=== PATIENT | female | born 1945 | race Caucasian/White ===

== ENCOUNTER → 2018-01-03 | Outpatient (CLI) | payer MEDICARE, OTHER ==
--- NOTE | 2018-01-03 15:55 | XR ---
EXAMINATION TYPE: XR chest 2V DATE OF EXAM: 01/03/2018 COMPARISON: NONE HISTORY: Shortness of breath, Elevated d-dimer TECHNIQUE: Frontal and lateral views of the chest are obtained. FINDINGS: There is no focal air space opacity, pleural effusion, or pneumothorax seen. The cardiac silhouette size is within normal limits. Pectus deformity is suspected. Patient is rotated. The osse ous structures are intact. IMPRESSION: No acute cardiopulmonary process.
--- NOTE | 2018-01-03 16:46 | NM ---
EXAMINATION TYPE: NM pul vent and perfuse DATE OF EXAM: 01/03/2018 COMPARISON: Chest radiograph 01/03/2018 at 3:27 PM HISTORY: Elevated d-dimer and dyspnea TECHNIQUE: Utilizing inhalation of 38 mCi Tc 99m DTPA aerosol and intravenous injection of 5.06 mCi of Tc 99m MAA, ventilation and perfusion images are acquired post injection in multiple projections. FINDINGS: There is mild heterogeneity to the radiotracer distribution is noted in the lungs. There is no eviden ce of mismatched defects. IMPRESSION: Low probability for the diagnosis of pulmonary embolism.
== END | disposition home or self-care (01) ==
LOC: RADNMMAIN 15:19
PROVIDERS: ATTEND Nurse Practitioner Family
DX: R06.02 Shortness of breath (principal); R79.1 Abnormal coagulation profile
CPT/HCPCS: 71046; 78582; A9540; A9567

== ENCOUNTER 2018-02-01 21:19 | Emergency (ER) | payer MEDICARE, OTHER ==
[2018-02-01 21:42] VITALS: TEMP 97.3
--- NOTE | 2018-02-01 21:54 | ED ---
SOB HPI - General Chief Complaint: Shortness of Breath Stated Complaint: SOB Time Seen by Provider: 02/01/18 21:29 Source: EMS Mode of arrival: EMS Limitations: no limitations - History of Present Illness Initial Comments: This patient is a 72-year-old woman who presents by ambulance to be evaluated for shortness of breath. History comes from the patient and her . She believes that she developed shortness of breath when she eats certain foods that do not agree with her ostomy. She states that she had a muffin tonight with citrus fruit. She believes this contributed to her shortness of breath which came on around 8 PM. She states that she was feeling much couldn't catch her breath and called EMS. EMS transported patient here after placing her on oxygen and she states that the oxygen seemed to help the symptoms resolve. She states that she feels nearly back to her usual self. She states she has had multiple episodes like this, last on after eating some tomato-based food. 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 The patient is currently not taking blood thinners and has had no further DVT/PE. The patient did state that in relation to an episode of dyspnea that she had last month she was given a VQ scan that was read as negative. MD Complaint: shortness of breath Onset/Timin -: hour(s) Improves With: oxygen Worsens With: nothing Associated Symptoms: denies other symptoms Treatments Prior to Arrival: oxygen - Related Data Home Medications Medication Instructions Recorded Confirmed Atenolol 25 mg PO DAILY 02/01/18 02/01/18 Brimonidine Tartrate/Timolol 1 drop BOTH EYES DAILY 02/01/18 02/01/18 [Combigan 0.2%-0.5% Eye Drops] Cetirizine HCl [Zyrtec] 10 mg PO DAILY 02/01/18 02/01/18 Docusate [Colace] 100 mg PO DAILY 02/01/18 02/01/18 Glucosam/Camilo-Msm1/C/Joaquin/Bosw 1 tab PO DAILY 02/01/18 02/01/18 [Glucosamine-Chondroitin Tablet] Lisinopril [Zestril] 20 mg PO DAILY 02/01/18 02/01/18 [place]-3 Fatty Acids/Fish Oil [Fish 1 cap PO DAILY 02/01/18 02/01/18 Oil 1,000 mg Softgel] Polyethylene Glycol 3350 [Miralax] 17 gm PO DAILY 02/01/18 02/01/18 Simvastatin [Zocor] 10 mg PO DAILY 02/01/18 02/01/18 Travoprost [Travatan Z 0.004%] 1 drop BOTH EYES HS 02/01/18 02/01/18 hydrALAZINE HCL 50 mg PO DAILY 02/01/18 02/01/18 Previous Rx's Medication Instructions Recorded Albuterol Inhaler [Ventolin Hfa 1 - 2 puff INHALATION Q6HR PRN #1 02/02/18 Inhaler] inhaler predniSONE 20 mg PO BID #8 tab 02/02/18 Allergies Allergy/AdvReac Type Severity Reaction Status Date / Time Penicillins Allergy Rash/Hives Verified 02/01/18 21:40 latex AdvReac Rash/Hives Verified 02/01/18 21:40 Review of Systems ROS Statement: Those systems with pertinent positive or pertinent negative responses have been documented in the HPI. ROS Other: All systems not noted in ROS Statement are negative. Constitutional: Denies: fever, chills, weakness Respiratory: Reports: dyspnea. Denies: cough, wheezes, hemoptysis Cardiovascular: Denies: chest pain, palpitations, orthopnea, edema, syncope Gastrointestinal: Denies: abdominal pain, nausea, vomiting Genitourinary: Denies: dysuria, hematuria Musculoskeletal: Denies: back pain Skin: Denies: rash Neurological: Denies: headache Past Medical History Past Medical History: GERD/Reflux, Hypertension History of Any Multi-Drug Resistant Organisms: None Reported Past Surgical History: Cholecystectomy Additional Past Surgical History / Comment(s): ostomy Past Psychological History: No Psychological Hx Reported Smoking Status: Never smoker Past Alcohol Use History: None Reported Past Drug Use History: None Reported General Exam Limitations: no limitations General appearance: alert, in no apparent distress Head exam: Present: atraumatic, normocephalic Eye exam: Present: normal appearance. Absent: scleral icterus, conjunctival injection Neck exam: Present: normal inspection Respiratory exam: Present: wheezes. Absent: respiratory distress, rales, rhonchi, stridor Cardiovascular Exam: Present: regular rate, normal rhythm, normal heart sounds. Absent: systolic murmur, diastolic murmur, rubs, gallop GI/Abdominal exam: Present: soft, other (There is an ostomy present in the left upper quadrant which appears normal.). Absent: distended, tenderness, guarding , rebound, rigid, mass Extremities exam: Present: normal inspection, normal capillary refill. Absent: pedal edema, calf tenderness Back exam: Present: normal inspection. Absent: CVA tenderness (R), CVA tenderness (L) Neurological exam: Present: alert Skin exam: Present: warm, dry, intact, normal color. Absent: rash Course Vital Signs 02/01/18 02/01/18 02/01/18 21:35 22:22 22:25 Temperature 97.3 F L Pulse Rate 72 67 64 Respiratory 20 16 18 Rate Blood Pressure 166/98 129/82 O2 Sat by Pulse 94 L 96 Oximetry 02/01/18 02/01/18 02/02/18 22:34 23:00 00:00 Temperature Pulse Rate 64 64 60 Respiratory 16 20 14 Rate Blood Pressure 171/82 138/66 O2 Sat by Pulse 95 93 L Oximetry 02/02/18 02/02/18 02/02/18 01:00 01:22 01:24 Temperature Pulse Rate 61 Respiratory 17 Rate Blood Pressure 131/67 O2 Sat by Pulse 95 91 L 91 L Oximetry Medical Decision Making - Medical Decision Making Patient is 72-year-old woman who had an episode of dyspnea at home. On the exam she does have some wheezing. She is feeling better following albuterol here. She is feeling better and would like to go home, and at this point I discussed further treatment as well as follow-up and return parameters. - Lab Data Result diagrams: 02/01/18 21:55 02/01/18 21:55 Lab Results 02/01/18 02/01/18 02/01/18 Range/Units 21:55 21:55 21:55 WBC 5.7 (3.8-10.6) k/uL RBC 4.81 (3.80-5.40) m/uL Hgb 14.2 (11.4-16.0) gm/dL Hct 43.6 (34.0-46.0) % MCV 90.5 (80.0-100.0) fL MCH 29.5 (25.0-35.0) pg MCHC 32.5 (31.0-37.0) g/dL RDW 14.3 (11.5-15.5) % Plt Count 220 (150-450) k/uL Neutrophils % 77 % Lymphocytes % 14 % Monocytes % 4 % Eosinophils % 3 % Basophils % 1 % Neutrophils # 4.4 (1.3-7.7) k/uL Lymphocytes # 0.8 L (1.0-4.8) k/uL Monocytes # 0.2 (0-1.0) k/uL Eosinophils # 0.2 (0-0.7) k/uL Basophils # 0.1 (0-0.2) k/uL PT (9.0-12.0) sec INR (<1.2) APTT (22.0-30.0) sec D-Dimer (<0.60) mg/L FEU Sodium 137 (137-145) mmol/L Potassium 4.1 (3.5-5.1) mmol/L Chloride 102 (98-107) mmol/L Carbon Dioxide 26 (22-30) mmol/L Anion Gap 9 mmol/L BUN 32 H (7-17) mg/dL Creatinine 1.03 (0.52-1.04) mg/dL Est GFR (CKD-EPI)AfAm 63 (>60 ml/min/1.73 sqM) Est GFR (CKD-EPI)NonAf 55 (>60 ml/min/1.73 sqM) Glucose 111 H (74-99) mg/dL Calcium 9.7 (8.4-10.2) mg/dL Total Bilirubin 0.5 (0.2-1.3) mg/dL AST 32 (14-36) U/L ALT 26 (9-52) U/L Alkaline Phosphatase 76 (38-126) U/L Total Creatine Kinase (30-135) U/L CK-MB (CK-2) (0.0-2.4) ng/mL CK-MB (CK-2) Rel Index Troponin I (0.000-0.034) ng/mL NT-Pro-B Natriuret Pep 622 pg/mL Total Protein 8.2 (6.3-8.2) g/dL Albumin 4.1 (3.5-5.0) g/dL 02/01/18 02/01/18 Range/Units 21:55 21:55 WBC (3.8-10.6) k/uL RBC (3.80-5.40) m/uL Hgb (11.4-16.0) gm/dL Hct (34.0-46.0) % MCV (80.0-100.0) fL MCH (25.0-35.0) pg MCHC (31.0-37.0) g/dL RDW (11.5-15.5) % Plt Count (150-450) k/uL Neutrophils % % Lymphocytes % % Monocytes % % Eosinophils % % Basophils % % Neutrophils # (1.3-7.7) k/uL Lymphocytes # (1.0-4.8) k/uL Monocytes # (0-1.0) k/uL Eosinophils # (0-0.7) k/uL Basophils # (0-0.2) k/uL PT 10.9 (9.0-12.0) sec INR 1.1 (<1.2) APTT 26.8 (22.0-30.0) sec D-Dimer 1.26 H (<0.60) mg/L FEU Sodium (137-145) mmol/L Potassium (3.5-5.1) mmol/L Chloride (98-107) mmol/L Carbon Dioxide (22-30) mmol/L Anion Gap mmol/L BUN (7-17) mg/dL Creatinine (0.52-1.04) mg/dL Est GFR (CKD-EPI)AfAm (>60 ml/min/1.73 sqM) Est GFR (CKD-EPI)NonAf (>60 ml/min/1.73 sqM) Glucose (74-99) mg/dL Calcium (8.4-10.2) mg/dL Total Bilirubin (0.2-1.3) mg/dL AST (14-36) U/L ALT (9-52) U/L Alkaline Phosphatase (38-126) U/L Total Creatine Kinase 24 L (30-135) U/L CK-MB (CK-2) 1.3 (0.0-2.4) ng/mL CK-MB (CK-2) Rel Index 5.4 Troponin I <0.012 (0.000-0.034) ng/mL NT-Pro-B Natriuret Pep pg/mL Total Protein (6.3-8.2) g/dL Albumin (3.5-5.0) g/dL - EKG Data -: EKG Interpreted by Me EKG shows normal: sinus rhythm, axis (Normal), intervals (Normal), QRS complexes (Normal), ST-T waves (Normal) Rate: normal (Rate 63 bpm) Interpretation: normal EKG Disposition Clinical Impression: Bronchitis Disposition: HOME SELF-CARE Condition: Good Instructions: Acute Bronchitis (ED) Prescriptions: Albuterol Inhaler [Ventolin Hfa Inhaler] 1 - 2 puff INHALATION Q6HR PRN #1 inhaler PRN Reason: Wheezing predniSONE 20 mg PO BID #8 tab Is patient prescribed a controlled substance at d/c from ED?: No Referrals: Girish Herrera MD [Primary Care Provider] - 1-2 days
[2018-02-01] MEDS ORDERED: ALBUTEROL NEBULIZED 2.5 MG/3 ML INHALATION STA (21:57)
[2018-02-01 22:24] LABS: Basophils # (A) 0.1 k/uL (0-0.2); Basophils % (A) 1 %; Eosinophils # (A) 0.2 k/uL (0-0.7); Eosinophils % (A) 3 %; HCT 43.6 % (34.0-46.0); HGB 14.2 gm/dL (11.4-16.0); Lymphocytes # (A) 0.8 k/uL (1.0-4.8); Lymphocytes % (A) 14 %; MCH 29.5 pg (25.0-35.0); MCHC 32.5 g/dL (31.0-37.0); MCV 90.5 fL (80.0-100.0); Mean Platelet Volume 7.9; Monocytes # (A) 0.2 k/uL (0-1.0); Monocytes % (A) 4 %; Neutrophils # (A) 4.4 k/uL (1.3-7.7); Neutrophils % (A) 77 %; Platelet Count 220 k/uL (150-450); RBC 4.81 m/uL (3.80-5.40); RDW 14.3 % (11.5-15.5); WBC 5.7 k/uL (3.8-10.6)
[2018-02-01 22:32] LABS: Albumin 4.1 g/dL (3.5-5.0); Calcium 9.7 mg/dL (8.4-10.2); Potassium 4.1 mmol/L (3.5-5.1); Total Bilirubin 0.5 mg/dL (0.2-1.3); Total Protein 8.2 g/dL (6.3-8.2)
[2018-02-01 22:36] LABS: Creatine Kinase 24 U/L (30-135)
[2018-02-01 22:39] LABS: INR 1.1 (<1.2); Partial Thromboplastin Time 26.8 sec (22.0-30.0); Prothrombin Time 10.9 sec (9.0-12.0)
[2018-02-01 22:43] LABS: D-Dimer 1.26 mg/L FEU (<0.60)
[2018-02-01 22:49] LABS: Creatine Kinase MB 1.3 ng/mL (0.0-2.4); Troponin I <0.012 ng/mL (0.000-0.034)
--- NOTE | 2018-02-01 23:01 | XR ---
EXAMINATION TYPE: XR chest 1V portable DATE OF EXAM: 02/01/2018 COMPARISON: 01/03/2018 HISTORY: Short of breath TECHNIQUE: Single frontal view of the chest is obtained. FINDINGS: Heart and mediastinum are normal. Lungs are clear. Diaphragm is normal. Bony thorax is int act. IMPRESSION: Normal chest. No change.
--- NOTE | 2018-02-01 23:46 | CT ---
EXAMINATION TYPE: CT chest angio for PE DATE OF EXAM: 02/01/2018 COMPARISON: None HISTORY: r/o pe, sob CT DLP: 208.50 mGycm Automated exposure control for dose reduction was used. CONTRAST: CT Chest for pulmonary embolism performed with with IV Contrast, patient injected with 70 mL of Isovu e 370. There are 3-D post processed images. FINDINGS: The lungs are clear of infiltrate. There is no evidence of a pulmonary mass. There is subsegmental at electasis at the left posterior lung base. There is no mediastinal adenopathy. There are no hilar masses. Heart size is normal. There is no norman cardial effusion. There is no pleural effusion. Thoracic aorta is intact without evidence of aneurysm or dissection. There is normal contrast opacifi cation of the pulmonary arteries. I see no filling defect. The bony thorax is intact. IMPRESSION: Minimal subsegmental atelectasis. No evidence of pulmonary embolism.
[2018-02-02 01:09] VITALS: BP 131/67; PULSE 61; RESP 17
== END 2018-02-02 01:22 | disposition home or self-care (01) ==
LOC: EC 21:19
DX: J40 Bronchitis, not specified as acute or chronic (principal); I10 Essential (primary) hypertension; Z79.899 Other long term (current) drug therapy; Z88.0 Allergy status to penicillin; Z91.040 Latex allergy status
CPT/HCPCS: 36415; 94640; 93005; 85379; 83880; 80053; 82550; 82553; 84484; 85025; 85610; 85730; 71045; 71275; 99285; Q9967

== ENCOUNTER 2018-12-01 19:14 | Observation (INO) | payer MEDICARE, OTHER ==
[2018-12-01] MEDS ORDERED: IPRATROPIUM-ALBUTEROL 3 ML NEB INHALATION STA (19:33)
[2018-12-01] MEDS ORDERED: ONDANSETRON 4 MG/2 ML VIAL IVP STA (19:33)
[2018-12-01] MEDS ORDERED: ALBUTEROL NEBULIZED 2.5 MG/3 ML INHALATION STA (19:33)
--- NOTE | 2018-12-01 19:42 | XR ---
EXAMINATION TYPE: XR chest 1V portable DATE OF EXAM: 12/01/2018 COMPARISON: 02/01/2018 HISTORY: Difficulty breathing TECHNIQUE: Single frontal view of the chest is obtained. FINDINGS: There is no heart failure nor confluent pneumonic infiltrate. Heart size is normal. Costop hrenic angles are clear. Bony thorax is intact. IMPRESSION: No active cardiopulmonary disease. No change. Normal heart.
[2018-12-01] MEDS ORDERED: diphenhydrAMINE 50 MG CAP PO STA (19:44)
[2018-12-01] MEDS ORDERED: FAMOTIDINE 20 MG/2 ML VIAL IV STA (19:44)
[2018-12-01] MEDS ORDERED: EPINEPHrine 1 MG/ML 1 ML AMP IM STA (19:44)
[2018-12-01] MEDS ORDERED: SODIUM CHLORIDE 0.9% 1,000 ML IV STA (19:45)
[2018-12-01] MEDS ORDERED: diphenhydrAMINE 50 MG/ML 1 ML VIAL IVP STA (19:48)
--- NOTE | 2018-12-01 19:52 | ED ---
General Adult HPI - General Chief complaint: Shortness of Breath Stated complaint: Diff Breathing Time Seen by Provider: 12/01/18 19:45 Source: EMS Mode of arrival: EMS Limitations: no limitations - History of Present Illness Initial comments: Dictation was produced using [employer]IE[employer] dictation software. please excuse any grammatical, word or spelling errors. Chief Complaint: 73-year-old female with past medical history of any ALLERGY, GERD, hypertension presents with acute onset dyspnea. History of Present Illness: A 83-year-old female she presents with acute onset dyspnea. They were eating waffles.. At home when she all of a sudden became acutely dyspneic. Patient does have an ALLERGY to wheat. She reports that typ ically when she has weight she does get some shortness of breath. She does not have any history of anaphylaxis. States that she never got discharged around from wheat ingestion in the past. She does have ALLERGIES to penicillin and latex. Patient has a history of retained pneumothorax when she had an ostomy procedure performed in the past. She does complain of some epigastric pain. EMS was concerned about possible pneumothorax. They weren't able to auscultate right lung sounds. She has history of retained pneumothorax on the left. Prednisone and a DuoNeb with slight abdominal symptoms. The ROS documented in this emergency department record has been reviewed and confirmed by me. Those systems with pertinent positive or negative responses have been documented in the HPI. All other systems are other negative and/or noncontributory. PHYSICAL EXAM: General Impression: Alert and oriented x3, acutely dyspneic, tripoding HEENT: Normocephalic atraumatic, extra-ocular movements intact, pupils equal and reactive to light bilaterally, dry mucous membranes Cardiovascular: Heart regular rate and rhythm, S1&S2 audible, no murmurs, rubs or gallops Chest: Poor air exchange, significant wheezing to the bilateral lung stiles worse on the right Abdomen: Bowel sounds present, abdomen soft, non-tender, non-distended, no organomegaly Musculoskeletal: Pulses present and equal in all extremities, no peripheral edema Motor: no focal deficits noted Neurological: CN II-XII grossly intact, no focal motor or sensory deficits noted Skin: Erythematous urticarial rash to the extremities and lower back ED course: 73-year-old female with chief complaint of dyspnea. Patient looked very toxic and severely short of breath. On arrival showed respiratory rate of 40, blood pressure 180/119 she is 97% on 15 L nonrebreather. Given the acuity of patient symptoms and history of any allergen there is concern for anaphylaxis. She has shortness of breath, epigastric abdominal pain and rash. Patient placed on BiPAP, she is given IM epi, antihistamines. Portal chest x- ray does not show any pneumothorax. Patient observed in emergency Department and rapidly improved over the course of 10-15 minutes after IM epinephrine injection. Patient observed and resuscitation bay and improved dramatically after IM epinephrine injection.Laboratory evaluation obtained. CBC, metabolic panel is unremarkable. Patient's improvement in breathing status over the last minutes warrented trial without BiPAP. Patient tolerate no BiPAP. Patient put on supplemental oxygen. Given patient's age and persistent wheezing while admit patient for medical monitoring and when necessary [id number] breathing treatments. - Related Data Home Medications Medication Instructions Recorded Confirmed Atenolol 25 mg PO DAILY 02/01/18 12/01/18 Docusate [Colace] 100 mg PO BID 02/01/18 12/01/18 Glucosam/Camilo-Msm1/C/Joaquin/Bosw 1 tab PO DAILY 02/01/18 12/01/18 [Glucosamine-Chondroitin Tablet] Lisinopril [Zestril] 20 mg PO DAILY 02/01/18 12/01/18 Polyethylene Glycol 3350 [Miralax] 17 gm PO DAILY 02/01/18 12/01/18 Simvastatin [Zocor] 10 mg PO HS 02/01/18 12/01/18 Travoprost [Travatan Z 0.004%] 1 drop BOTH EYES HS 02/01/18 12/01/18 hydrALAZINE HCL 50 mg PO DAILY 02/01/18 12/01/18 Calcium Carbonate/Vitamin D3 1 cap PO DAILY 12/01/18 12/01/18 [Calcium 600-Vit D3 500 Softgel] Montelukast [Singulair] 10 mg PO DAILY 12/01/18 12/01/18 Omeprazole Magnesium [PriLOSEC OTC] 20 mg PO DAILY 12/01/18 12/01/18 Allergies Allergy/AdvReac Type Severity Reaction Status Date / Time latex Allergy Rash/Hives Verified 12/01/18 19:50 Penicillins Allergy Rash/Hives Verified 12/01/18 19:50 wheat Allergy Anaphylaxis Verified 12/01/18 20:34 Review of Systems ROS Statement: Those systems with pertinent positive or pertinent negative responses have been documented in the HPI. ROS Other: All systems not noted in ROS Statement are negative. Past Medical History Past Medical History: GERD/Reflux, Hypertension History of Any Multi-Drug Resistant Organisms: None Reported Past Surgical History: Cholecystectomy Additional Past Surgical History / Comment(s): ostomy Past Psychological History: No Psychological Hx Reported Smoking Status: Never smoker Past Alcohol Use History: None Reported Past Drug Use History: None Reported General Exam Limitations: no limitations Course Vital Signs 12/01/18 12/01/18 12/01/18 19:18 19:36 19:59 Temperature 97.6 F Pulse Rate 88 87 99 Respiratory 40 H 40 H 28 H Rate Blood Pressure 188/119 O2 Sat by Pulse 97 Oximetry 12/01/18 12/01/18 20:32 21:41 Temperature Pulse Rate 86 77 Respiratory 25 H 22 Rate Blood Pressure 160/73 138/70 O2 Sat by Pulse 95 96 Oximetry Medical Decision Making - Lab Data Result diagrams: 12/01/18 20:02 12/01/18 20:02 Lab Results 12/01/18 12/01/18 Range/Units 20:02 20:02 WBC 8.8 (3.8-10.6) k/uL RBC 4.97 (3.80-5.40) m/uL Hgb 15.2 (11.4-16.0) gm/dL Hct 44.6 (34.0-46.0) % MCV 89.7 (80.0-100.0) fL MCH 30.6 (25.0-35.0) pg MCHC 34.1 (31.0-37.0) g/dL RDW 15.1 (11.5-15.5) % Plt Count 291 (150-450) k/uL Neutrophils % 82 % Lymphocytes % 11 % Monocytes % 3 % Eosinophils % 2 % Basophils % 1 % Neutrophils # 7.2 (1.3-7.7) k/uL Lymphocytes # 1.0 (1.0-4.8) k/uL Monocytes # 0.3 (0-1.0) k/uL Eosinophils # 0.2 (0-0.7) k/uL Basophils # 0.1 (0-0.2) k/uL Sodium 139 (137-145) mmol/L Potassium 4.1 (3.5-5.1) mmol/L Chloride 100 (98-107) mmol/L Carbon Dioxide 26 (22-30) mmol/L Anion Gap 13 mmol/L BUN 26 H (7-17) mg/dL Creatinine 0.92 (0.52-1.04) mg/dL Est GFR (CKD-EPI)AfAm 72 (>60 ml/min/1.73 sqM) Est GFR (CKD-EPI)NonAf 63 (>60 ml/min/1.73 sqM) Glucose 207 H (74-99) mg/dL Calcium 9.5 (8.4-10.2) mg/dL Disposition Clinical Impression: Anaphylaxis Disposition: ADMITTED IP TO THIS HOSP Condition: Fair Referrals: Girish Hererra MD [Primary Care Provider] - 1-2 days Decision Time: 22:08
[2018-12-01 20:21] LABS: Calcium 9.5 mg/dL (8.4-10.2); Potassium 4.1 mmol/L (3.5-5.1)
[2018-12-01 20:27] LABS: Basophils # (A) 0.1 k/uL (0-0.2); Basophils % (A) 1 %; Eosinophils # (A) 0.2 k/uL (0-0.7); Eosinophils % (A) 2 %; HCT 44.6 % (34.0-46.0); HGB 15.2 gm/dL (11.4-16.0); Lymphocytes % (A) 11 %; MCH 30.6 pg (25.0-35.0); MCHC 34.1 g/dL (31.0-37.0); MCV 89.7 fL (80.0-100.0); Mean Platelet Volume 8.1; Monocytes # (A) 0.3 k/uL (0-1.0); Monocytes % (A) 3 %; Neutrophils # (A) 7.2 k/uL (1.3-7.7); Neutrophils % (A) 82 %; Platelet Count 291 k/uL (150-450); RBC 4.97 m/uL (3.80-5.40); RDW 15.1 % (11.5-15.5); WBC 8.8 k/uL (3.8-10.6)
[2018-12-01] MEDS ORDERED: ACETAMINOPHEN TAB 325 MG TAB PO PRN (21:44)
[2018-12-01] MEDS ORDERED: NALOXONE 0.4 MG/ML 1 ML VIAL IV PRN (21:44)
[2018-12-01] MEDS: IPRATROPIUM-ALBUTEROL 3 ML NEB INHALATION SCH (22:25)
[2018-12-02] MEDS: IPRATROPIUM-ALBUTEROL 3 ML NEB INHALATION SCH ×4 (03:41→20:27)
[2018-12-02] MEDS: SODIUM CHLORIDE 0.9% 1,000 ML IV SCH ×2 (07:33→21:51)
[2018-12-02] MEDS: hydrALAZINE HCL 50 MG TAB PO SCH (08:22)
[2018-12-02] MEDS: LORATADINE 10 MG TAB PO SCH (08:22)
[2018-12-02] MEDS: FAMOTIDINE 20 MG TAB PO SCH (08:23)
[2018-12-02] MEDS: BETAMETHASONE DIPROPIONATE 0.05% OINTMENT 45 GM TUBE TOPICAL SCH (15:47)
[2018-12-02] MEDS ORDERED: ALBUTEROL NEBULIZED 2.5 MG/3 ML INHALATION PRN (15:51)
--- NOTE | 2018-12-02 17:19 | CONS ---
CONSULTATION Azeb Valle is a 73-year-old female who presented to the ED with increasing shortness of breath. She also had difficulty speaking at that time. She apparently has food allergies. She had been eating waffles and 20 minutes after that, became acutely short of breath. She was having some epigastric pain as well at the time. She has a previous history of pneumothorax in the past and sought medical attention. She subsequently came in the ER and was given epinephrine along with antihistaminics and was admitted for further evaluation. She states that she had a similar episode about 6 months ago. She had been prescribed an inhaler and actually had to use her inhaler more frequently over the last 2-3 weeks. She has a history of seasonal allergies over the last few years and as a child as well. She was never discretely diagnosed with asthma or COPD, but has been a nonsmoker. PAST MEDICAL HISTORY: Positive for gastroesophageal reflux disease, history of abdominal surgery with subsequent ileostomy, what seems to have been surgery due to an obstructed bowel. She also had partial small-bowel removal at the time. Past medical history is also positive for gastroesophageal reflux disease. FAMILY HISTORY: Noncontributory. SOCIAL HISTORY: Patient is a never smoker. Does not drink alcohol. PHYSICAL EXAMINATION: Her blood pressure is 129/80, respiratory rate of 16, pulse rate 78, temperature 98.1 degrees Fahrenheit, O2 saturation on room air is 94%. HEENT: Pupils equal. CHEST: Clear. Cardiovascular system reveals an S1, S2. ABDOMEN: Soft . There is no pedal edema. LABS: Reveal a white count 8.8, hemoglobin 15.2, eosinophil count of 0.2 1000. Sodium 139, potassium 4.1, chloride 109, bicarb 26, BUN 26, creatinine 0.92, glucose 207. IMPRESSION: At this time: 1. Anaphylaxis. 2. Possible food allergy as a cause of anaphylaxis. 3. Gastroesophageal reflux disease. 4. Hypertension. 5. Elevated blood sugars. At this point in time from a pulmonary standpoint, keep her on IV steroids, antihistaminics, check her for food allergies. Control of blood sugars with insulin if need be. Use bronchodilators as needed. Depending on how she does we should make further changes to her care. She was counseled extensively regarding her condition and would recommend upon discharge that she receive an EpiPen. MMODL / IJN: [id number] /
--- NOTE | 2018-12-02 17:28 | P.HPIM ---
History of Present Illness H&P Date: 12/02/18 Chief Complaint: Shortness of breath wheezing This is a 73-year-old pleasant lady patient of Dr. Herrera. Patient was well until the Presentation when she developed acute dyspnea, at that time she was eating waffles. Patient denies any swelling of the lips or coughing spells or aspiration, patient denies any angioedema-like symptoms, she does have history of seasonal ALLERGIES and carries Proventil with her, however she was not formally diagnosed to have asthma. She denies any anaphylaxis in the past, home situation has not changed on the medications, from anybody including antibiotics, she denies any using insecticides or pesticides outside, however she uses Jefferson deodorant, without use of bathroom cleansers or powders. However she has been eating a lot of jelly beans, approximately 6 weeks ago, and gradually has some shortness of breath with worsening of symptoms on the day of admission. Patient denies any fever no chills, no rashes. 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 In emergency room, chest x-ray shows no acute pulmonary disease, no cardiomegaly, no pneumothorax, no pleural effusion she was she was admitted for acute reactive airway with bronchospasm, and was started on IV Solu-Medrol nebulized treatments, consult with pulmonary Review of Systems Constitutional: Reports as per HPI, Denies anorexia, Denies chills, Denies chronic headaches, Denies chronic pain, Denies daytime sleepiness, Denies fatigue, Denies fever, Denies lethargy, Denies malaise, Denies night sweats, Denies poor appetite, Denies sweats, Denies weakness, Denies weight gain, Denies weight loss Ears, nose, mouth and throat: Reports as per HPI, Denies ant. neck pain, Denies bleeding gums, Denies dental pain, Denies dysphagia, Denies epistaxis, Denies headache, Denies hoarseness, Denies mouth pain, Denies nasal congestion, Denies nasal discharge, Denies neck fullness/pressure, Denies neck lump, Denies nose pain, Denies odynophagia, Denies post-nasal drip, Denies sinus pain, Denies sinus pressure, Denies swelling in mouth, Denies swelling in throat, Denies sore throat, Denies vertigo, Denies voice changes Cardiovascular: Reports as per HPI, Reports shortness of breath, Denies chest pain, Denies claudication, Denies decreased exercise tolerance, Denies dyspnea on exertion, Denies edema, Denies high blood pressure, Denies irregular heart beat, Denies leg edema, Denies lightheadedness, Denies orthopnea, Denies palpitations, Denies paroxysmal nocturnal dyspnea, Denies phlebitis, Denies rapid heart beat, Denies syncope Respiratory: Reports as per HPI, Reports wheezing, Denies congestion, Denies cough, Denies cough with sputum, Denies dyspnea, Denies excessive sputum, Denies hemoptysis, Denies home oxygen, Denies pain, Denies pain on inspiration, Denies pleurisy, Denies respiratory infections, Denies sleep apnea, Denies snoring Gastrointestinal: Reports as per HPI Genitourinary: Reports as per HPI, Denies abnormal vaginal bleeding, Denies decreased libido, Denies difficulty conceiving, Denies difficulty voiding, Denies dysmenorrhea, Denies dyspareunia, Denies dysuria, Denies flank pain, Denies genital sores, Denies hematuria, Denies hot flashes, Denies incomplete emptying, Denies kidney stones, Denies menorrhagia, Denies mixed incontinence, Denies nocturia, Denies pelvic pain, Denies post void dribbling, Denies , Denies prolapse symptoms, Denies stress incontinence, Denies urge incontinence, Denies urgency, Denies urinary frequency, Denies vaginal discharge, Denies vaginal dryness, Denies vaginal itching, Denies vaginal odor Menstruation: Reports postmenopausal Musculoskeletal: Reports as per HPI, Denies arm numbness/tingling, Denies atrophy, Denies fractures, Denies frequent falls, Denies gait dysfunction, Denies hot joints, Denies leg numbness/tingling, Denies limitation of motion, Denies loss of height, Denies low back pain, Denies morning stiffness, Denies muscle cramps, Denies muscle weakness, Denies myalgias, Denies neck pain, Denies neck stiffness, Denies prior amputations, Denies redness of joints, Denies shooting arm pain, Denies shooting leg pain Integumentary: Reports as per HPI, Denies acne, Denies boils, Denies brittle nails, Denies change in hair/nails, Denies color changes, Denies darkening of skin, Denies depigmentation, Denies dryness, Denies foot/leg ulcers, Denies growths, Denies hirsutism, Denies lesions, Denies onychomycosis, Denies pruritus, Denies rash, Denies sores, Denies striae, Denies unusual bruising, Denies wounds Neurological: Reports as per HPI, Denies aphasia, Denies ataxia, Denies balance difficulties, Denies burning pain, Denies change in mentation, Denies change in smell/taste, Denies change in speech, Denies confusion, Denies convulsions, Denies double vision, Denies gait dysfunction, Denies head injury, Denies headaches, Denies hearing difficulties, Denies lack of coordination, Denies loss of vision, Denies memory loss, Denies migraines, Denies motor disturbance, Denies numbness, Denies paralysis, Denies paresthesias, Denies seizures, Denies sensory deficit, Denies spasticity, Denies syncope, Denies tic, Denies tingling, Denies transient paralysis, Denies tremors, Denies vertigo, Denies weakness, Denies visual changes Psychiatric: Reports as per HPI, Denies anhedonia, Denies anxiety, Denies anxiety attacks, Denies change in appetite, Denies change in libido, Denies change in sleep habits, Denies confusion, Denies depression, Denies difficulty concentrating, Denies disorientation, Denies hallucinations, Denies hopelessness, Denies hypersomnia, Denies insomnia, Denies irritability, Denies memory loss, Denies mood swings, Denies paranoia, Denies sadness/tearfulness, Denies sleep disturbances, Denies suicidal ideation Endocrine: Reports as per HPI Hematologic/Lymphatic: Reports as per HPI, Denies easy bleeding, Denies easy bruising, Denies lymphadenopathy, Denies lymphedema, Denies thrombophilia Allergic/Immunologic: Reports as per HPI, Reports allergic rhinitis, Denies anaphylaxis, Denies angioedema, Denies gluten intolerance, Denies persistent infections, Denies seasonal allergies, Denies urticaria, Denies wheezing Past Medical History Past Medical History: GERD/Reflux, Hypertension Additional Past Medical History / Comment(s): glaucoma, dry eye, bowel stent tearing History of Any Multi-Drug Resistant Organisms: None Reported Past Surgical History: Bowel Resection Additional Past Surgical History / Comment(s): ostomy to left lower quadrant Past Anesthesia/Blood Transfusion Reactions: No Reported Reaction Past Psychological History: No Psychological Hx Reported Smoking Status: Never smoker Past Alcohol Use History: None Reported Past Drug Use History: None Reported - Past Family History Brother(s) Family Medical History: Cancer Additional Family Medical History / Comment(s): states unknown kind of cancer but where femur and hip joint cancer Medications and Allergies Home Medications Medication Instructions Recorded Confirmed Type Atenolol 25 mg PO DAILY 02/01/18 12/01/18 History Docusate [Colace] 100 mg PO BID 02/01/18 12/01/18 History Glucosam/Camilo-Msm1/C/Joaquin/Bosw 1 tab PO DAILY 02/01/18 12/01/18 History [Glucosamine-Chondroitin Tablet] Lisinopril [Zestril] 20 mg PO DAILY 02/01/18 12/01/18 History Polyethylene Glycol 3350 [Miralax] 17 gm PO DAILY 02/01/18 12/01/18 History Simvastatin [Zocor] 10 mg PO HS 02/01/18 12/01/18 History Travoprost [Travatan Z 0.004%] 1 drop BOTH EYES HS 02/01/18 12/01/18 History hydrALAZINE HCL 50 mg PO DAILY 02/01/18 12/01/18 History Calcium Carbonate/Vitamin D3 1 cap PO DAILY 12/01/18 12/01/18 History [Calcium 600-Vit D3 500 Softgel] Montelukast [Singulair] 10 mg PO DAILY 12/01/18 12/01/18 History Omeprazole Magnesium [PriLOSEC OTC] 20 mg PO DAILY 12/01/18 12/01/18 History Allergies Allergy/AdvReac Type Severity Reaction Status Date / Time latex Allergy Rash/Hives Verified 12/01/18 19:50 Penicillins Allergy Rash/Hives Verified 12/01/18 19:50 wheat Allergy Anaphylaxis Verified 12/01/18 20:34 Physical Exam Vitals: Vital Signs Temp Pulse Pulse Resp BP BP Pulse Ox 12/02/18 09:31 84 12/02/18 09:21 84 09/21/19 07:38 97.8 F 86 18 151/84 95 12/02/18 04:00 18 12/02/18 00:50 98.3 F 72 18 156/82 94 L 12/02/18 00:12 20 12/01/18 22:50 70 20 157/81 96 12/01/18 22:32 72 16 12/01/18 22:25 74 16 12/01/18 21:41 77 22 138/70 96 12/01/18 20:32 86 25 H 160/73 95 12/01/18 19:59 99 28 H 12/01/18 19:36 87 40 H 12/01/18 19:18 97.6 F 88 40 H 188/119 97 Intake and Output 12/01/18 12/02/18 12/02/18 22:59 06:59 14:59 Intake Total 640 Balance 640 Intake: Intake, IV Titration 100 Amount Sodium Chloride 0.9% 1, 100 000 ml @ 20 mls/hr IV . Q24H [facility] Rx#:[id number] Oral 540 Other: Voiding Method Toilet Toilet # Voids 1 Weight 54.431 kg - Constitutional General appearance: cooperative, no acute distress - EENT Eyes: anicteric sclerae, EOMI, PERRLA, dentition normal, normal appearance ENT: NA/AT, normal oropharynx - Neck Neck: no lymphadenopathy, normal ROM, no other, no rigidity, no stridor, no thyromegaly - Respiratory Respiratory: bilateral: CTA, diminished, wheezing, negative: rales, rhonchi - Cardiovascular Rhythm: regular Heart sounds: normal: S1, S2 Abnormal Heart Sounds: no systolic murmur, no diastolic murmur, no rub, no S3 Gallop, no S4 Gallop, no click, no other - Gastrointestinal General gastrointestinal: normal bowel sounds, soft (Colostomy left side intact) - Integumentary Integumentary: normal - Neurologic Neurologic: CNII-XII intact, focal deficits (None) - Musculoskeletal Musculoskeletal: gait normal, strength equal bilaterally - Psychiatric Psychiatric: A&O x's 3, appropriate affect, intact judgment & insight Results CBC & Chem 7: 12/01/18 20:02 12/01/18 20:02 Labs: Abnormal Lab Results - Last 24 Hours (Table) 12/01/18 Range/Units 20:02 BUN 26 H (7-17) mg/dL Glucose 207 H (74-99) mg/dL Laboratory Results WBC 8.8 k/uL (3.8-10.6) 12/01/18 20: RBC 4.97 m/uL (3.80-5.40) 12/01/18 20:02 Hgb 15.2 gm/dL (11.4-16.0) 12/01/18 20: Hct 44.6 % (34.0-46.0) 12/01/18 20: MCV 89.7 fL (80.0-100.0) 12/01/18 20: MCH 30.6 pg (25.0-35.0) 12/01/18: MCHC 34.1 g/dL (31.0-37.0) 12/01/18 20: RDW 15.1 % (11.5-15.5) 12/01/18 20: Plt Count 291 k/uL (150-450) 12/01/18 20:02 Neutrophils % 82 % 12/01/18 20:02 Lymphocytes % 11 % 12/01/18 20:02 Monocytes % 3 % 12/01/18 20:02 Eosinophils % 2 % 12/01/18 20:02 Basophils % 1 % 12/01/18 20:02 Neutrophils # 7.2 k/uL (1.3-7.7) 12/01/18 20:02 Lymphocytes # 1.0 k/uL (1.0-4.8) 12/01/18 20:02 Monocytes # 0.3 k/uL (0-1.0) 12/01/18 20:02 Eosinophils # 0.2 k/uL (0-0.7) 12/01/18 20:02 Basophils # 0.1 k/uL (0-0.2) 12/01/18 20:02 Sodium 139 mmol/L (137-145) 12/01/18 20:02 Potassium 4.1 mmol/L (3.5-5.1) 12/01/18 20:02 Chloride 100 mmol/L (98-107) 12/01/18 20:02 Carbon Dioxide 26 mmol/L (22-30) 12/01/18 20: Anion Gap 13 mmol/L 12/01/18 20:02 BUN 26 mg/dL (7-17) H 12/01/18 20:02 Creatinine 0.92 mg/dL (0.52-1.04) 12/01/18 20:02 Est GFR (CKD-EPI)AfAm 72 (>60 ml/min/1.73 sqM) 12/01/18 20:02 Est GFR (CKD-EPI)NonAf 63 (>60 ml/min/1.73 sqM) 12/01/18 20:02 Glucose 207 mg/dL (74-99) H 12/01/18 20:02 Calcium 9.5 mg/dL (8.4-10.2) 12/01/18 20:02 Thrombosis Risk Factor Assmnt - Choose All That Apply Each Risk Factor Represents 2 Points: Age 61-74 years Thrombosis Risk Factor Assessment Total Risk Factor Score: 2 Thrombosis Risk Factor Assessment Level: Low Risk Assessment and Plan Plan: 1. Reactive airway disease, with bronchospasm, no angioedema, patient is given Solu-Medrol and nebulized albuterol Atrovent, underlying asthma suspected, she carries Proventil at home currently, etiology needs to be ruled out, could be related to aerosolized deodorants, against food dyes, no other triggers identified including pets and gardening, doubt wheat sensitivities causing reactive airway problems, patient is to carry Proventil, and educated regarding airway exacerbations. IG E level could be done and hypersensitivity pneumonitis as op. Continue pepcid and Claritin. Consult with Dr. Huynh/[facility] 2. History of colostomy placed secondary to bowel resection in the past, stable 3. GERD, stable 4. Hypertension hydrALAZINE 5. hyperlipidemia on lipitor 10
[2018-12-02 20:18] LABS: Glucose,Whole Blood 105 mg/dL (75-99)
[2018-12-02] MEDS: INSULIN ASPART (NovoLOG) 100 UNIT/ML VIAL SQ SCH (20:23)
[2018-12-02] MEDS ORDERED: LATANOPROST 0.005% OPHTH DROPS 2.5 ML BTL BOTH EYES SCH (21:00)
[2018-12-02] MEDS ORDERED: ATORVASTATIN 10 MG TAB PO SCH (21:00)
[2018-12-02] MEDS: methylPREDNISolone SOD SUCCI 125 MG/2 ML VIAL IV SCH (21:48)
[2018-12-03 00:32] LABS: Clam IgE <0.10 kU/L
[2018-12-03 00:33] LABS: Peanut IgE <0.10 kU/L
[2018-12-03 00:34] LABS: Codfish IgE <0.10 kU/L; Scallop IgE <0.10 kU/L; Walnut IgE (Food) <0.10 kU/L
[2018-12-03 00:35] LABS: Shrimp IgE <0.10 kU/L
[2018-12-03 00:42] LABS: Egg White IgE <0.10 kU/L; Soybean IgE <0.10 kU/L
[2018-12-03] MEDS: methylPREDNISolone SOD SUCCI 125 MG/2 ML VIAL IV SCH ×3 (01:15→13:10)
[2018-12-03] MEDS: IPRATROPIUM-ALBUTEROL 3 ML NEB INHALATION SCH ×3 (01:32→13:32)
[2018-12-03 01:46] VITALS: RESP 17
[2018-12-03 07:07] VITALS: BP 163/85; TEMP 98
[2018-12-03] MEDS: INSULIN ASPART (NovoLOG) 100 UNIT/ML VIAL SQ SCH ×2 (07:48→13:10)
[2018-12-03] MEDS: hydrALAZINE HCL 50 MG TAB PO SCH (08:50)
[2018-12-03] MEDS: LORATADINE 10 MG TAB PO SCH (08:51)
[2018-12-03] MEDS: FAMOTIDINE 20 MG TAB PO SCH (08:51)
[2018-12-03] MEDS: BETAMETHASONE DIPROPIONATE 0.05% OINTMENT 45 GM TUBE TOPICAL SCH (08:51)
[2018-12-03 11:59] VITALS: BMI 20.5
[2018-12-03 13:32] VITALS: PULSE 72
--- NOTE | 2018-12-03 21:33 | PN ---
PROGRESS NOTE DATE OF SERVICE: December 03, 2018. She has an occasional cough. Otherwise, she seems to be doing fair. On physical examination, vitals are stable. She is afebrile. Chest is clear. Cardiovascular system reveals an S1, S2. Abdomen is soft. There is no edema. IMPRESSION: At this time is: 1. Allergic reaction, unclear if this is due to food coloring or dye. 2. Probable asthma. Would agree with discharge planning with EpiPen, tapering dose of steroids and close outpatient followup. We would be happy to see her in the outpatient setting if need be. She was counseled regarding her condition and this approach. Her IgE level which was drawn was elevated at 527. Her food allergy panel that was done was negative. MMODL / IJN: [id number] /
== END 2018-12-03 15:27 | disposition home or self-care (01) ==
LOC: EC 19:14 → 4SSUR 21:44
PROVIDERS: ADMIT Family Medicine; ATTEND Family Medicine
DX: J45.909 Unspecified asthma, uncomplicated (principal); T78.40XA Allergy, unspecified, initial encounter; R10.13 Epigastric pain; I10 Essential (primary) hypertension; K21.9 Gastro-esophageal reflux disease without esophagitis; E78.5 Hyperlipidemia, unspecified; R73.9 Hyperglycemia, unspecified; Z90.49 Acquired absence of other specified parts of digestive tract; Z79.899 Other long term (current) drug therapy; Z91.040 Latex allergy status; Z88.0 Allergy status to penicillin; Z91.018 Allergy to other foods; Z93.3 Colostomy status; Z80.9 Family history of malignant neoplasm, unspecified
CPT/HCPCS: 96376; 96375 ×2; 96372; 96374; 99285; 36415; 94660; 94640 ×5; 80048; 85025; 86003; 82785; 71045; G0378 ×3; J0171; J1200; J2930 ×2; J2405

== ENCOUNTER → 2019-01-16 | Outpatient (CLI) | payer MEDICARE, OTHER ==
--- NOTE | 2019-01-17 07:43 | BD ---
EXAMINATION TYPE: Axial Bone Density DATE OF EXAM: 01/16/2019 COMPARISON: NONE CLINICAL HISTORY: disorder of bone Height: 5'4 Weight: 129 FRAX RISK QUESTIONS: Secondary Osteoporosis: RISK FACTORS HISTORY OF: Postmenopausal woman: y MEDICATIONS: Additional Medications: high blood pressure, cholesterol Additional History: colon surgery twisted. 2016 EXAM MEASUREMENTS: Bone mineral densitometry was performed using the [employer] System. Bone mineral density as measured about the Lumbar spine is: ----- L1-L4(G/cm2): 1.501 T Score Values are as follows: ----- L2: 3.2 ----- L3: 2.7 ----- L4: 2.7 ----- L1-L4: 2.7 Bone mineral density about the R hip (g/cm2): 0.807 Bone mineral density about the L hip (g/cm2): 0.776 T Score values are as follows: -----R Neck: -1.7 -----L Neck: -1.9 -----R Total: -1.4 -----L Total: -1.4 IMPRESSION: Osteopenia (T Score between -2.5 and -1). There is slightly increased risk of fracture and the patient may be considered for treatment. Re-Screen 2-5 years. NOTE: T-SCORE=SD OF THE YOUNG ADULT MEAN.
--- NOTE | 2019-01-18 09:50 | MM ---
Reason for exam: screening (asymptomatic). Last mammogram was performed 4 years and 2 months ago. History: Patient is postmenopausal. Benign right US cyst aspiration of the right breast, September 29, 2006. Benign stereotactic core biopsy of the left breast, 2004. Took estrogen for 5 years beginning at age 56. Physical Findings: A clinical breast exam by your physician is recommended on an annual basis and results should be correlated with mammographic findings. MG 3D Screening Mammo W/Cad Bilateral CC and MLO view(s) were taken. Prior study comparison: November 13, 2014, bilateral MG screening mammo w CAD. November 01, 2013, bilateral MG screening mammo w CAD. The breast tissue is heterogeneously dense. This may lower the sensitivity of mammography. Stable benign calcifications. There is no discrete abnormality. No significant changes when compared with prior studies. ASSESSMENT: Benign, BI-RAD 2 RECOMMENDATION: Routine screening mammogram of both breasts in 1 year.
== END | disposition home or self-care (01) ==
LOC: RADMAMWWP 14:39
PROVIDERS: ATTEND Internal Medicine
DX: Z12.31 Encounter for screening mammogram for malignant neoplasm of breast (principal); M85.80 Other specified disorders of bone density and structure, unspecified site
CPT/HCPCS: 77063; 77067; 77080

== ENCOUNTER → 2021-07-23 | Outpatient (CLI) | payer OTHER ==
--- NOTE | 2021-07-23 21:54 | BD ---
EXAMINATION TYPE: Axial Bone Density DATE OF EXAM: 07/23/2021 COMPARISON: 01/16/2019 CLINICAL HISTORY: 75 years year old Female. ICD-10 CODE: M81.0 AGE RELATED OSTEOPOROSIS Height: 63 IN Weight: 136 LBS FRAX RISK QUESTIONS: Secondary Osteoporosis: 3. Menopause before 45: AGE 46 RISK FACTORS HISTORY OF: Family History of Osteoporosis: MOTHER Active: YES Postmenopausal woman: AGE 46 Take estrogen and/or progesterone medications: NOT NOW How long: TOOK FOR 1 YEAR MEDICATIONS: Osteoporosis Medications: YES Which medication: SODIUM ALENDRONATE How Lon YEARS Additional Medications: CENTRUM SENIORS,SODIUM ALENDRONATE,HIGH BLOOD PRESSURE MEDS, COLACE, EYE DROP S EXAM MEASUREMENTS: Bone mineral densitometry was performed using the [employer] System. Bone mineral density as measured about the Lumbar spine is: ----- L1-L4(G/cm2): 1.470 T Score Values are as follows: ----- L1: 1.6 ----- L2: 2.2 ----- L3: 2.6 ----- L4: 3.0 ----- L1-L4: 2.4 Bone mineral density has: Decreased -1.8% since study of: 01/16/2015 Bone mineral density about the R hip (g/cm2): 0.871 Bone mineral density about the L hip (g/cm2): 0.833 T Score values are as follows: -----R Neck: -1.2 -----L Neck: -1.5 -----R Total: -0.9 -----L Total: -1.1 Bone mineral density has: Increased 6.0% since study of: 01/16/2015 FRAX%s: The graph provided illustrates a 11.0 chance for a major osteoporotic fx and a 2.2 chance for the hips probability for fx in 10 years time. IMPRESSION: Osteopenia (T Score between -2.5 and -1). There is slightly increased risk of fracture and the patient may be considered for treatment. Re-Screen 2-5 years. NOTE: T-SCORE=SD OF THE YOUNG ADULT MEAN.
--- NOTE | 2021-07-24 12:48 | MM ---
Reason for exam: screening (asymptomatic). Last mammogram was performed 2 years and 6 months ago. History: Patient is postmenopausal. Benign right US cyst aspiration of the right breast, September 29, 2006. Benign stereotactic core biopsy of the left breast, 2004. Took estrogen for 5 years beginning at age 56. Physical Findings: A clinical breast exam by your physician is recommended on an annual basis and results should be correlated with mammographic findings. MG 3D Screening Mammo W/Cad Bilateral CC and MLO view(s) were taken. Prior study comparison: January 16, 2019, bilateral MG 3d screening mammo w/cad. November 13, 2014, bilateral MG screening mammo w CAD. The breast tissue is extremely dense which could obscure a lesion on mammography. Stable benign calcifications. There is no discrete abnormality. No significant changes when compared with prior studies. ASSESSMENT: Benign, BI-RAD 2 RECOMMENDATION: Routine screening mammogram of both breasts in 1 year.
== END | disposition home or self-care (01) ==
LOC: RADBDWWP 14:44
PROVIDERS: ATTEND Internal Medicine
DX: Z12.31 Encounter for screening mammogram for malignant neoplasm of breast (principal); M85.89 Other specified disorders of bone density and structure, multiple sites; Z78.0 Asymptomatic menopausal state
CPT/HCPCS: 77063; 77067; 77080

== ENCOUNTER → 2022-01-20 | Outpatient (CLI) | payer OTHER ==
--- NOTE | 2022-01-20 15:07 | US ---
EXAMINATION TYPE: US carotid duplex BILAT DATE OF EXAM: 01/20/2022 COMPARISON: Carotid ultrasound 2016 CLINICAL HISTORY: I65.23 CAROTID STENOSIS. TECHNIQUE: Carotid duplex ultrasound examination. Indirect Doppler criteria was utilized. FINDINGS: EXAM MEASUREMENTS: RIGHT: Peak Systolic Velocity (PSV) cm/sec ----- Right CCA: 60.1 ----- Right ICA: 52.9 ----- Right ECA: 52.7 ICA/CCA ratio: 0.9 RIGHT: End Diastole cm/sec ----- Right CCA: 10.7 ----- Right ICA: 12.1 ----- Right ECA: 3.7 LEFT: Peak Systolic Velocity (PSV) cm/sec ----- Left CCA: 77.6 ----- Left ICA: 57.2 ----- Left ECA: 90.9 ICA/CCA ratio: 0.7 LEFT: End Diastole cm/sec ----- Left CCA: 12.8 ----- Left ICA: 17.0 ----- Left ECA: 8.7 VERTEBRALS (direction of flow): Right Vertebral: Antegrade Left Vertebral: Antegrade Rhythm: Normal ALTERATION WORKER NOTES: No significant stenosis seen IMPRESSION: No hemodynamically significant stenosis in either internal carotid artery. Criteria for Assigning % of Stenosis / Diameter reduction (Estimation based on the indirect measurements of the internal carotid artery velocities (ICA PSV). 1. Normal (no stenosis)=ICA PSV < 125 cm/s: ratio < 2.0: ICA EDV<40 cm/s. 2. Less than 50% stenosis=ICA PSV < 125 cm/s: ratio < 2.0: ICA EDV<40 cm/s. 3. 50 to 69% stenosis=ICA PSV of 125 to 230 cm/s: ration 2.0 ? 4.0: ICA EDV 40-100 cm/s. 4. Greater than 70% stenosis to near occlusion= ICA PSV > 230 cm/s: ratio > 4.0: ICA EDV > 100 cm/s. 5. Near occlusion= ICA PSV velocities may be low or undetectable: variable ratio and ICA EDV. 6. Total occlusion=unable to detect flow.
== END | disposition home or self-care (01) ==
LOC: RADUSWWP 13:59
PROVIDERS: ATTEND Internal Medicine
DX: I65.23 Occlusion and stenosis of bilateral carotid arteries (principal)
CPT/HCPCS: 93880

== ENCOUNTER → 2022-07-08 | Outpatient (CLI) | payer MEDICARE ==
[2022-07-08 19:29] LABS: Basophils # (A) 0.05 X 10*3/uL (0.00-0.10); Basophils % (A) 0.8 %; Eosinophils # (A) 0.09 X 10*3/uL (0.04-0.35); Eosinophils % (A) 1.4 %; HGB 15.4 g/dL (12.0-15.0); Immature Grans, Automated 0.3 %; Lymphocytes # (A) 1.42 X 10*3/uL (0.90-5.00); Lymphocytes % (A) 21.6 %; MCH 29.3 pg (27.0-32.0); MCHC 31.4 g/dL (32.0-37.0); MCV 93.3 fL (80.0-97.0); Mean Platelet Volume 12.5 fL (9.5-12.2); Monocytes # (A) 0.52 X 10*3/uL (0.20-1.00); Monocytes % (A) 7.9 %; NRBC Per 100 WBC 0 /100 WBCS (0.0-0.0); Neutrophils # (A) 4.46 X 10*3/uL (1.80-7.70); Platelet Count 192 X 10*3/uL (140-440); RBC 5.25 X 10*6/uL (4.10-5.20); RDW 14.6 % (11.5-14.5); WBC 6.56 X 10*3/uL (4.50-10.00)
[2022-07-08 21:18] LABS: Appearance,Urine Clear (Clear); Bilirubin,Urine Negative (Negative); Blood,Urine Negative (Negative); Color,Urine Yellow (Yellow); Ketones,Urine Negative (Negative); Nitrite,Urine Negative (Negative); Specific Gravity,Urine 1.011 (1.001-1.030); Urobilinogen,Urine 0.2 (0.2,1.0)
[2022-07-08 21:24] LABS: Bacteria,Urine 4+ /HPF (None Seen)
[2022-07-08 23:48] LABS: ALT 25 U/L (8-44); AST 30 U/L (13-35); African American GFR (CKD) 54.5 (60.0-200.0); Albumin 4.4 g/dL (3.8-4.9); Albumin/Globulin Ratio 1.27 (1.60-3.17); Alkaline Phosphatase 62 U/L (41-126); Blood Urea Nitrogen 30.1 mg/dL (9.0-27.0); Calcium 9.9 mg/dL (8.7-10.3); Carbon Dioxide 20.7 mmol/L (20.0-27.5); Chloride 102 mmol/L (96-109); Globulin 3.4 g/dL (1.6-3.3); Glucose 86 mg/dL (70-110); LDL Cholesterol,Calculated 142.9 mg/dL (0.0-131.0); Potassium 4.2 mmol/L (3.5-5.5); Sodium 142 mmol/L (135-145); Total Protein 7.8 g/dL (6.2-8.2)
== END | disposition home or self-care (01) ==
LOC: LABWHC1 09:18
PROVIDERS: ATTEND Internal Medicine
DX: Z00.00 Encounter for general adult medical examination without abnormal findings (principal); I10 Essential (primary) hypertension; J45.30 Mild persistent asthma, uncomplicated; E78.2 Mixed hyperlipidemia; M85.852 Other specified disorders of bone density and structure, left thigh
CPT/HCPCS: 36415; 80053; 80061; 81001; 82306; 83036; 83735; 84439; 84443; 85025

== ENCOUNTER → 2022-08-06 | Outpatient (CLI) | payer OTHER ==
--- NOTE | 2022-08-10 08:20 | MM ---
Reason for Exam: Screening (asymptomatic). Last screening mammogram was performed 12 month(s) ago. Patient History: Menarche at age 13. First Full-Term at age 22. Postmenopausal. Estrogen for 5 years from age 56 until age 61. 2004, Benign Stereotactic Core Biopsy on the left side. 09/29/2006, Benign Cyst Aspiration on the right side. Risk Values: Parisa 5 year model risk: 1.9%. NCI Lifetime model risk: 3.8%. Prior Study Comparison: 11/13/2014 Bilateral Screening Mammogram, [facility]. 01/16/2019 Bilateral Screening Mammogram, [facility]. 07/23/2021 Bilateral Screening Mammogram, [facility]. Tissue Density: The breast tissue is heterogeneously dense. This may lower the sensitivity of mammography. Findings: Analyzed By CAD. There is no suspicious group of microcalcifications or new suspicious mass in either breast. Overall Assessment: Benign, BI-RAD 2 Management: Screening Mammogram of both breasts in 1 year. . Patient should continue monthly self-breast exams. A clinical breast exam by your physician is recommended on an annual basis. This exam should not preclude additional follow-up of suspicious palpable abnormalities. Note on Parisa scores and lifetime risk: 1. A Parisa score greater than 3% is considered moderate risk. If this is the case, consider specialist referral to assess eligibility for a risk reducing agent. 2. If overall lifetime risk for the development of breast cancer is 20% or higher, the patient may qualify for future screening with alternating mammogram and breast MRI. Electronically signed and approved by: Rhett Lemus M.D. Radiologis
== END | disposition home or self-care (01) ==
LOC: RADMAMWWP 10:45
PROVIDERS: ATTEND Internal Medicine
DX: Z12.31 Encounter for screening mammogram for malignant neoplasm of breast (principal); Z78.0 Asymptomatic menopausal state
CPT/HCPCS: 77063; 77067

== ENCOUNTER → 2023-12-21 | Outpatient (CLI) | payer MEDICARE ==
--- NOTE | 2023-12-22 11:21 | MM ---
Reason for Exam: Screening (asymptomatic). Last mammogram was performed 1 year(s) and 5 month(s) ago. Patient History: Menarche at age 13. First Full-Term at age 22. Postmenopausal. Estrogen for 5 years from age 56 until age 61. 2004, Benign Stereotactic Core Biopsy on the left side. 09/29/2006, Benign Cyst Aspiration on the right side. Risk Values: Parisa 5 year model risk: 1.8%. NCI Lifetime model risk: 3.5%. Prior Study Comparison: 01/16/2019 Bilateral Screening Mammogram, [facility]. 07/23/2021 Bilateral Screening Mammogram, [facility]. 08/06/2022 Bilateral MG 3D screening mammo w/cad, [facility]. Tissue Density: The breasts are heterogeneously dense, which may obscure small masses. Findings: Analyzed By CAD. There is no suspicious group of microcalcifications or new suspicious mass in either breast. Overall Assessment: Benign, BI-RAD 2 Management: Screening Mammogram of both breasts in 1 year. . Patient should continue monthly self-breast exams. A clinical breast exam by your physician is recommended on an annual basis. This exam should not preclude additional follow-up of suspicious palpable abnormalities. Note on Parisa scores and lifetime risk: 1. A Parisa score greater than 3% is considered moderate risk. If this is the case, consider specialist referral to assess eligibility for a risk reducing agent. 2. If overall lifetime risk for the development of breast cancer is 20% or higher, the patient may qualify for future screening with alternating mammogram and breast MRI. [facility], , 12/22/2023 11:18 AM. Electronically signed and approved by: Rhett Lemus M.D. Radiologis
== END | disposition home or self-care (01) ==
LOC: RADMAMWWP 11:14
PROVIDERS: ATTEND Internal Medicine Geriatric Medicine
CPT/HCPCS: 77063; 77067